=== PATIENT | female | born 1980 | race Caucasian/White ===

== ENCOUNTER → 2018-07-21 11:30 | Outpatient (POV) | payer MEDICARE, BC, SELFPAY ==
[2018-07-21 11:51] VITALS: BP 136/94; PULSE 119; RESP 18; O2SAT 98
--- NOTE | 2018-07-21 12:05 | HMH.PMCON ---
Assessment and Plan (1) Arthritis Current visit: Yes Status: Chronic Category: Medical Code(s): M19.90 - Unspecified osteoarthritis, unspecified site (2) Fibromyalgia Current visit: Yes Status: Chronic Category: Medical Code(s): M79.7 - Fibromyalgia - Assessment and plan all Dx Assessment and Plan for all problems:: Patient is definitely interested in narcotic medications. She is not a narcotic candidate given her use of illegal drugs along with an inappropriate pill count and ORT. Patient has no diagnostic imaging or work-up that she has presented to us other than pain management notes which do not include this. Patient states that she has felt that she is potentially going to far in the past when she was discharged from Dr. Sawyer's office she sent messages to him over the Internet. Patient states she is had injections of the time but the last couple time she has not been able to talk her doctors into it . I have some serious concerns in regards to this patient. Patient states she cannot function without narcotic pain pills. Patient stated over 3 times that she knows that he will get pain medication from us I discussed with her that the new policy was started 2 years ago and we no longer write any oral narcotic medication for patients unless they have active cancer. Patient was uninterested in this. Patient left the office upset due to the fact that she was not receiving any narcotic medications today. we will refer her back to her primary care physician. Dr. Montoya has reviewed this note and agrees with this plan of care. This note was dictated using voice recognition software and may contain errors or omissions HPI - Data of Consult Consult date: 07/21/18 Requesting Physician: Kristan Perez APRN Primary Care Provider: Nelly Natarajan MD - Consult Narrative Reason for consult: fibromylagia pain History of present illness: Ms. Magallanes is a 37 year old female who presents today for consultation in regards to generalized pain. Patient states that she was diagnosed with rheumatoid arthritis back when she was 10 years old. She states that her recent protein chemist she was not able to talk her into giving her more injections. Patient was seen by Dr. Joshua Sawyer where she failed a pill count. Patient was on a high dose of narcotic medication at the time. Patient states that she was ashamed however she did send messages to Dr. Sawyer over the Internet after discharge. Lives here in [place] at this time she is recently split up from her fianc?. Imaging at she does not have copies of this. Patient has asked for narcotic medications on multiple occasions stating that she knows people who come to this clinic and receive them. Patient states she cannot function as a mother without narcotics. She applied for disability at 34. Patient currently on disability. Patient has multiple comorbidities according to the notes however I do not have any substantiating work-up. Patient's had an inappropriate drug screen at her last pain clinic she also failed a pill count. Patient also states that she does utilize illegal drugs at times. Patient states that her brother has a rehab in [place] and she understands that pain pills are not good for her but she cannot function without them. Patient is very insistent on needing narcotic medication and not wanting to proceed with potential injections or anything else at this time without the possibility of her receiving narcotic medications. She rates her pain today 6 out of 10. She has had aSurgery on her left arm. Patient states she is gone through multiple rheumatologists and therapist at this time. Patient story is somewhat disconnected and disjointed. CC: Kristan Perez APRN [facility] History I have reviewed the patient's past medical history: Yes Medical History: Denies:: Diabetes Mellitus Type 1 Other Medical History: Reports: Arthritis Laterality Cases: Left: Myringotomy (E
--- NOTE | 2018-07-21 12:20 | P.CONS_ITS ---
Assessment and Plan (1) Arthritis Current visit: Yes Status: Chronic Category: Medical Code(s): M19.90 - Unspecified osteoarthritis, unspecified site (2) Fibromyalgia Current visit: Yes Status: Chronic Category: Medical Code(s): M79.7 - Fibromyalgia - Assessment and plan all Dx Assessment and Plan for all problems:: Patient is definitely interested in narcotic medications. She is not a narcotic candidate given her use of illegal drugs along with an inappropriate pill count and ORT. Patient has no diagnostic imaging or work-up that she has presented to us other than pain management notes which do not include this. Patient states that she has felt that she is potentially going to far in the past when she was discharged from Dr. Sawyer's office she sent messages to him over the Internet. Patient states she is had injections of the time but the last couple time she has not been able to talk her doctors into it . I have some serious concerns in regards to this patient. Patient states she cannot function without narcotic pain pills. Patient stated over 3 times that she knows that he will get pain medication from us I discussed with her that the new policy was started 2 years ago and we no longer write any oral narcotic medication for patients unless they have active cancer. Patient was uninterested in this. Patient left the office upset due to the fact that she was not receiving any narcotic medications today. we will refer her back to her primary care physician. Dr. Montoya has reviewed this note and agrees with this plan of care. This note was dictated using voice recognition software and may contain errors or omissions HPI - Data of Consult Consult date: 07/21/18 Requesting Physician: Kristan Perez APRN Primary Care Provider: Nelly Natarajan MD - Consult Narrative Reason for consult: fibromylagia pain History of present illness: Ms. Magallanes is a 37 year old female who presents today for consultation in regards to generalized pain. Patient states that she was diagnosed with rheumatoid arthritis back when she was 10 years old. She states that her recent engineering drawings checker she was not able to talk her into giving her more injections. Patient was seen by Dr. Joshua Sawyer where she failed a pill count. Patient was on a high dose of narcotic medication at the time. Patient states that she was ashamed however she did send messages to Dr. Sawyer over the Internet after discharge. Lives here in [place] at this time she is recently split up from her fianc?. Imaging at she does not have copies of this. Patient has asked for narcotic medications on multiple occasions stating that she knows people who come to this clinic and receive them. Patient states she cannot function as a mother without narcotics. She applied for disability at 34. Patient currently on disability. Patient has multiple comorbidities according to the notes however I do not have any substantiating work-up. Patient's had an inappropriate drug screen at her last pain clinic she also failed a pill count. Patient also states that she does utilize illegal drugs at times. Patient states that her brother has a rehab in [place] and she understands that pain pills are not good for her but she cannot function without them. Patient is very insistent on needing narcotic medication and not wanting to proceed with potential injections or anything else at this time without the possibility of her receiving narcotic medications. She rates her pain today 6 out of 10. She has had aSurgery on her left arm. Patient states she is gone through multiple rheumatologists and therapist at this time. Patient story is somewhat disconnected and dis
== END ==
PROVIDERS: PCP Internal Medicine; Visit Provider Clinical Nurse Specialist Family Health
DX: M79.7 Fibromyalgia (principal); M19.90 Unspecified osteoarthritis, unspecified site
CPT/HCPCS: 99202

== ENCOUNTER → 2018-10-26 10:22 | Outpatient (POV) | payer MEDICARE, BC, SELFPAY ==
[2018-10-26 11:02] VITALS: BP 116/75; PULSE 97; RESP 18; O2SAT 98; BMI 21.4
--- NOTE | 2018-10-26 13:25 | P.CONS_ITS ---
[facility] Pain Management SOAP Note Subjective:: Patient is a pleasant 38-year-old white female who presents today for follow-up. At her last visit patient left quite upset because she was only interested in narcotic medication stating that that was the only way that she was able to function. Since then she has been weaned off everything. She was a patient of Dr. Sawyer however she failed a drug screen and a pill count. Patient also states that she does utilize illegal drugs at times. She is not a narcotic candidate however she comes today to discuss lumbar epidural injections along with SI joint injections. She has had this in the past with good relief from Dr. Joshua Sawyer's office she is not on any anticoagulation therapy. She st ates that she gets up to 80% relief for 2 months after her injection. Patient continuing a home stretching program. ROS General: no recent weight change, no fever, no sleep disturbances Respiratory: no cough, no shortness of air, no recurring pulmonary infections Cardiovascular/Peripheral Vascular: No chest pain, No palpitations, no edema, no shortness of breath. Gastrointestinal: no incontinence, normal bowel movements reported Genitourinary: no incontinence Musculoskeletal: Back pain, leg pain Psychiatric: normal mood/ affect Neurological: [denies weakness in extremities], [denies balance issues] Objective:: Physical Exam General: Alert and oriented x3, no acute distress, pleasant and cooperative, [on room air] Lungs: Resps E/U, Symmetrical chest expansion, Eyes: PERRL Musculoskeletal: Flexion and extension of lumbar spine somewhat guarded secondary to pain, deep tendon reflexes normal, strength in upper and lower extremities [5/5], slightly antalgic gait noted positive straight leg raise test bilaterally at 30 degrees Neurological: speech clear, dough maker equal, no gross sensory deficits Assessment:: Degenerative disc disease lumbar spine with lumbar radiculopathy Plan:: We will set her up for an L4-L5 lumbar epidural steroid injection given the efficacy of this in the past I believe would be beneficial I reiterated with her that we would not be prescribing any narcotic medications. Patient understands this. I will follow-up with her after injection reassess her symptoms at that time. Dr. Montoya has reviewed this note and agrees with this plan of care. This note was dictated using voice recognition software and may contain errors or omissions Pain Management Hx Components *Have you ever received a pneumonia vaccine?: No *Have you received a flu vaccine this season?: Yes - *Social History *Occupational Status:: other *Travel in the last 8 weeks: None
== END ==
PROVIDERS: PCP Internal Medicine; Visit Provider Clinical Nurse Specialist Family Health
DX: M51.16 Intervertebral disc disorders with radiculopathy, lumbar region (principal)
CPT/HCPCS: 99212

== ENCOUNTER → 2018-12-07 13:29 | Outpatient (POV) | payer MEDICARE, SELFPAY ==
[2018-12-07 14:10] VITALS: BP 126/78; PULSE 91; RESP 18; O2SAT 100; BMI 20.9
--- NOTE | 2018-12-08 08:44 | HMH.PAINSOAP ---
[facility] Pain Management SOAP Note Subjective:: Patient is a 38-year-old white female who presents today for follow-up after lumbar epidural steroid injection. Patient states that she is a little disappointed with her results . Patient wants to discuss the pain pump. I discussed with her that she is not an intrathecal pain pump candidate due to her history of previous substance abuse and narcotic use and failed previous drug screen and pill count. Patient is tearful today in regards to this. Patient would like an injection to her hips bilaterally. Patient is wanting this today. When I discussed with the patient that this would not be possible she is quite upset. Patient I did briefly discussed the stimulator. However she wanted me to know that she has put in a referral to [facility]. I discussed with her that I think that the great idea that if if she has somewhere that can treat her to her satisfaction that would be of benefit to her. She rates her pain today a 6 out of 10 ROS General: no recent weight change, no fever, no sleep disturbances Respiratory: no cough, no shortness of air, no recurring pulmonary infections Cardiovascular/Peripheral Vascular: No chest pain, No palpitations, no edema, no shortness of breath. Gastrointestinal: no incontinence, normal bowel movements reported Genitourinary: no incontinence Musculoskeletal: Back pain, hip pain Psychiatric: normal mood/ affect Neurological: [denies weakness in extremities], [denies balance issues] Objective:: Physical Exam General: Alert and oriented x3, no acute distress, pleasant and cooperative, [on room air] Lungs: Resps E/U, Symmetrical chest expansion, Eyes: PERRL Musculoskeletal: Flexion and extension of lumbar spine somewhat guarded secondary to pain, deep tendon reflexes normal, strength in upper and lower extremities [5/5], slightly antalgic gait noted Neurological: speech clear, inspector water pollution control equal, no gross sensory deficits Assessment:: Degenerative disc disease lumbar spine with lumbar radiculopathy symptoms Plan:: We will schedule the patient for bilateral intra-articular hip injections. Patient's been instructed to call the office if she has any issues prior to next appointment. If the patient is seen by [facility] prior to this she is going to let us know. Dr. Montoya has reviewed this note and agrees with this plan of care. This note was dictated using voice recognition software and may contain errors or omissions [facility] History I have reviewed the patient's past medical history: Yes Medical History: Denies:: Cancer, Diabetes Mellitus Type 1, Diabetes Mellitus Type 2, Internal Pacemaker, MRSA, Seizures *Have you ever received a pneumonia vaccine?: Yes *Have you received a flu vaccine this season?: Yes Other Medical History: Reports: Arthritis Laterality Cases: Left: Myringotomy (Ear Tubes), Right: Carpal Tunnel Release Other Surgeries: No: Pacemaker Amputation: No Fractures: No - *Social History Smoking Status: Current every day smoker Tobacco Type: cigarettes # Packs/Day (cigarettes): 1 Alcohol Intake: never Substance Use Type: marijuana *Occupational Status:: other Housing: house *Travel in the last 8 weeks: None Family Hx:: Unable to obtain
--- NOTE | 2018-12-08 08:48 | P.CONS_ITS ---
[facility] Pain Management SOAP Note Subjective:: Patient is a 38-year-old white female who presents today for follow-up after lumbar epidural steroid injection. Patient states that she is a little disappointed with her results . Patient wants to discuss the pain pump. I discussed with her that she is not an intrathecal pain pump candidate due to her history of previous substance abuse and narcotic use and failed previous drug screen and pill count. Patient is tearful today in regards to this. Patient would like an injection to her hips bilaterally. Patient is wanting this today. When I discussed with the patient that this would not be possible she is quite upset. Patient I did briefly discussed the stimulator. However she wanted me to know that she has put in a referral to [facility]. I discussed with her that I think that the great idea that if if she has somewhere that can treat her to her satisfaction that would be of benefit to her. She rates her pain today a 6 out of 10 ROS General: no recent weight change, no fever, no sleep disturbances Respiratory: no cough, no shortness of air, no recurring pulmonary infections Cardiovascular/Peripheral Vascular: No chest pain, No palpitations, no edema, no shortness of breath. Gastrointestinal: no incontinence, normal bowel movements reported Genitourinary: no incontinence Musculoskeletal: Back pain, hip pain Psychiatric: normal mood/ affect Neurological: [denies weakness in extremities], [denies balance issues] Objective:: Physical Exam General: Alert and oriented x3, no acute distress, pleasant and cooperative, [on room air] Lungs: Resps E/U, Symmetrical chest expansion, Eyes: PERRL Musculoskeletal: Flexion and extension of lumbar spine somewhat guarded secondary to pain, deep tendon reflexes normal, strength in upper and lower extremities [5/5], slightly antalgic gait noted Neurological: speech clear, garment folder equal, no gross sensory deficits Assessment:: Degenerative disc disease lumbar spine with lumbar radiculopathy symptoms Plan:: We will schedule the patient for bilateral intra-articular hip injections. Patient's been instructed to call the office if she has any issues prior to next appointment. If the patient is seen by [facility] prior to this she is going to let us know. Dr. Montoya has reviewed this note and agrees with this plan of care. This note was dictated using voice recognition software and may contain errors or omissions [facility] History I have reviewed the patient's past medical history: Yes Medical History: Denies:: Cancer, Diabetes Mellitus Type 1, Diabetes Mellitus Type 2, Internal Pacemaker, MRSA, Seizures *Have you ever received a pneumonia vaccine?: Yes *Have you received a flu vaccine this season?: Yes Other Medical History: Reports: Arthritis Laterality Cases: Left: Myringotomy (Ear Tubes), Right: Carpal Tunnel Release Other Surgeries: No: Pacemaker Amputation: No Fractures: No - *Social History Smoking Status: Current every day smoker Tobacco Type: cigarettes # Packs/Day (cigarettes): 1 Alcohol Intake: never Substance Use Type: marijuana *Occupational Status:: other Housing: house *Travel in the last 8 weeks: None Family Hx:: Unable to obtain
== END ==
LOC: SC.PAIN 13:30
PROVIDERS: Visit Provider Clinical Nurse Specialist Family Health
DX: M51.16 Intervertebral disc disorders with radiculopathy, lumbar region (principal)
CPT/HCPCS: 99212